=== PATIENT | male | born 1955 | race Caucasian/White ===

== ENCOUNTER 2024-05-14 07:34 | Day surgery (SDC) | payer MEDICARE, OTHER ==
[~2024-05-14 07:34] MED LIST: Midazolam 1 MG/ML 2 ML SDV ONE; Propofol 200 MG/20 ML SDV ONE; fentaNYL 50 MCG/ML SDV ONE
[2024-05-14] MEDS: Sodium Chloride 0.9% 1,000 ML IV SCH (08:22)
== END 2024-05-14 10:51 | disposition home or self-care (01) ==
LOC: JP.SDS 07:34
PROVIDERS: ATTEND Surgery
DX: Z12.11 Encounter for screening for malignant neoplasm of colon (principal); K63.5 Polyp of colon; I10 Essential (primary) hypertension; E78.5 Hyperlipidemia, unspecified; Z80.0 Family history of malignant neoplasm of digestive organs; E66.9 Obesity, unspecified
CPT/HCPCS: 00811; 45380; 88305; J2250; J2704; J3010; J7030